=== PATIENT | male | born 1940 | race Caucasian/White ===

== ENCOUNTER 2023-12-12 07:26 | Day surgery (SDC) | payer OTHER ==
[~2023-12-12] VITALS: Ht 162.6 cm; Wt 81.6 kg
[2023-12-12] MEDS ORDERED: MIDAZOLAM HCL 5 MG/5 ML VIAL ONE (07:46)
[2023-12-12] MEDS ORDERED: MEPERIDINE 100 MG INJ. 100 MG/ML VIAL ONE (07:46)
[2023-12-12 11:05] VITALS: O2SAT 94
[2023-12-12 13:29] VITALS: BP_SYST 140; PULSE 57; RESP 14
== END 2023-12-12 10:30 | disposition home or self-care (01) ==
LOC: SDS 07:26 → SMU 07:27 → SDS 10:30
PROVIDERS: ATTEND Internal Medicine Gastroenterology
DX: R13.10 Dysphagia, unspecified (principal); K31.7 Polyp of stomach and duodenum; K31.89 Other diseases of stomach and duodenum; K29.50 Unspecified chronic gastritis without bleeding; R10.32 Left lower quadrant pain; K31.84 Gastroparesis; I10 Essential (primary) hypertension; E11.9 Type 2 diabetes mellitus without complications; E78.5 Hyperlipidemia, unspecified; K21.9 Gastro-esophageal reflux disease without esophagitis; G47.30 Sleep apnea, unspecified; M79.7 Fibromyalgia; Z79.84 Long term (current) use of oral hypoglycemic drugs; Z79.899 Other long term (current) drug therapy; Z91.040 Latex allergy status; Z86.010 Personal history of colon polyps
CPT/HCPCS: 43239; 99152; 82948; 88305; 88312; 88313; G0378; J2250; J2175